=== PATIENT | female | born 1980 | race Hispanic/Latino ===

== ENCOUNTER 2018-07-07 09:35 | Emergency (ER) | payer BC ==
[2018-07-07 09:43] VITALS: BP 102/69; PULSE 79; RESP 18; TEMP 98.4; O2SAT 99
[2018-07-07] MEDS ORDERED: Naproxen 550 mg Tab PO STA (10:04)
--- NOTE | 2018-07-07 10:07 | C.PDOC ---
History Of Present Illness 37 yo female, no prior hx, presents with right shoulder pain started yesterday, after she "turned suddenly". reports pain from her neck, going down posterior shoulder region. no direct trauma. no fever no other complaint. Time Seen by Provider: 07/07/18 09:47 Chief Complaint (Nursing): Upper Extremity Problem/Injury Past Medical History Reviewed: Historical Data, Nursing Documentation, Vital Signs Vital Signs: Last Vital Signs Temp 98.4 F 07/07/18 09:41 Pulse 79 07/07/18 09:41 Resp 18 07/07/18 09:41 BP 102/69 07/07/18 09:41 Pulse Ox 99 07/07/18 09:41 Family History: States: Unknown Family Hx - Social History Hx Alcohol Use: No Hx Substance Use: No - Immunization History Hx Tetanus Toxoid Vaccination: No Hx Influenza Vaccination: No Hx Pneumococcal Vaccination: No Review Of Systems Musculoskeletal: Positive for: Shoulder Pain (right) Physical Exam - Physical Exam Appears: Well, No Acute Distress Skin: Normal Color, Warm, Dry Eye(s): bilateral: Normal Inspection, PERRL, EOMI Nose: Normal Throat: Normal Neck: Normal Cardiovascular: Rhythm Regular Respiratory: Normal Breath Sounds Gastrointestinal/Abdominal: Normal Exam, Soft, No Tenderness, No Guarding, No Rebound, Other (no humphreys) Back: Normal Inspection Extremity: Normal ROM, Tenderness (posterior right shoulder mild), No Deformity, No Swelling, Other (normal pulses, able to abduct, minimal pain) Neurological/Psych: Oriented x3, Normal Speech, Normal Cognition, No Cerebellar Signs, Normal Motor (rigth arm, ), Normal Sensation (right arm) ED Course And Treatment O2 Sat by Pulse Oximetry: 99 Medical Decision Making Medical Decision Making: suspect msk pain vs cerivcal radiculopathy. offered xr, pt declines, doubt fx. pt prefers outpt fu for possible mri. Disposition - Disposition Referrals: [facility] [Outside] [facility] [place] Disposition: HOME/ ROUTINE Disposition Time: 10:09 Condition: STABLE Additional Instructions: folloow up with your doctor/clinic. return to er with worsening symptoms or concerns. Prescriptions: Cyclobenzaprine [Cyclobenzaprine HCl] 10 mg PO DAILY PRN #10 tab PRN Reason: Muscle Spasm Naproxen 500 mg PO BID PRN #14 tab PRN Reason: Pain, Mild (1-3) Instructions: Shoulder Pain (DC) - Clinical Impression Clinical Impression: Shoulder pain
[2018-07-07] MEDS ORDERED: Naproxen 550 mg Tab PO ONE (10:10)
== END 2018-07-07 10:17 | disposition home or self-care (01) ==
LOC: C.ER 09:35
DX: M25.511 Pain in right shoulder (principal)